=== PATIENT | male | born 1960 | race African-American/Black ===

== ENCOUNTER 2021-05-30 01:00 | Emergency (ER) | payer SELFPAY ==
[~2021-05-30] VITALS: Ht 188 cm; Wt 84.0 kg
[2021-05-30 01:21] VITALS: BP 141/96
[2021-05-30 03:01] LABS: BASOPHILS % 1.3 % (0.0-2.0); EOSINOPHILS % 2.1 % (0.0-5.0); HEMATOCRIT. 41.5 % (42.0-52.0); LYMPHOCYTES % 29.9 % (20.0-50.0); MEAN CORPUSCULAR VOLUME 106.7 fL (80.0-94.0); MEAN PLATELET VOLUME 8.4 fl (7.4-10.4); MONOCYTES % 8.8 % (2.0-8.0); NEUTROPHILS % 57.9 % (40.0-76.0); PLATELET 352 x1000/uL (130-400); RED BLOOD CELL COUNT 3.89 mill/uL (4.7-6.1); RED CELL DISTRIBUTION WIDTH 15.6 % (11.6-14.6)
[2021-05-30 03:11] LABS: CHLORIDE 107 mEq/L (98-107)
[2021-05-30 03:15] LABS: ETHANOL BLOOD 227 mg/dL
[2021-05-30] MEDS ORDERED: GABA-532 PO (04:46)
== END 2021-05-30 05:01 | disposition home or self-care (01) ==
LOC: ER 01:00
DX: R20.2 Paresthesia of skin (principal); F10.10 Alcohol abuse, uncomplicated; Y90.7 Blood alcohol level of 200-239 mg/100 ml
CPT/HCPCS: 36415; 71045; 80053; 80320; 85025; 99284; G0480

== ENCOUNTER 2023-04-27 14:37 | Inpatient (IN) | payer OTHER ==
[~2023-04-27] VITALS: Ht 188 cm; Wt 89.8 kg
[~2023-04-27 14:37] MED LIST: GABA-532 PO
[2023-04-27] MEDS: DEXTROSE 50% WATER 50ML SYRINGE IV ONE (15:00)
[2023-04-27] MEDS: SODIUM CHLORIDE 0.9% 1,000 ML IV ONE (15:41)
[2023-04-27 15:46] LABS: HEMATOCRIT. 41.2 % (42.0-52.0); HEMOGLOBIN. 14.1 g/dL (14.0-18.0); MEAN CORPUSCULAR HEMOGLOBIN 36.7 pg (28.0-32.0); MEAN CORPUSCULAR HGB CONC 34.2 g/dL (31.0-37.0); MEAN CORPUSCULAR VOLUME 107.3 fL (80.0-94.0); RED BLOOD CELL COUNT 3.85 mill/uL (4.7-6.1); WHITE BLOOD COUNT 16.5 x1000/uL (4.5-11.0)
[2023-04-27 15:47] LABS: DIFFERENTIAL COMMENT 1
[2023-04-27 15:58] LABS: INR 0.9; PARTIAL THROMBOPLASTIN TIME < 21.0 sec (23.4-31.0); PROTHROMBIN TIME 10.6 sec (9.6-11.0)
[2023-04-27 16:06] LABS: ALANINE AMINOTRANSFERASE 16 IU/L (10-49); ALBUMIN 4.2 g/dL (3.2-4.8); ASPARTATE AMINOTRANSFERASE 44 IU/L (<34); BILIRUBIN TOTAL 0.6 mg/dL (0.1-1.0); CALCIUM 9.7 mg/dL (8.7-10.4); CARBON DIOXIDE 19 mEq/L (21-32); CHLORIDE 98 mEq/L (98-107); CREATININE 0.7 mg/dL (0.6-1.3); ETHANOL BLOOD 16 mg/dL (<10); GLUCOSE 59 mg/dL (70-105); POTASSIUM 4.8 mEq/L (3.5-5.1); PROTEIN TOTAL 8.2 g/dL (6.0-8.3); SODIUM 133 mEq/L (136-145); T4 FREE 0.96 ng/dL (0.89-1.76); UREA NITROGEN BLOOD 13 mg/dL (9-23)
[2023-04-27 16:09] LABS: MEAN PLATELET VOLUME 10.1 fl (7.4-10.4); NUCLEATED RED BLOOD CELLS 3 /100 WBC; PLATELET 345 x1000/uL (130-400)
[2023-04-27 16:10] LABS: PLATELET ESTIMATE NORMAL
[2023-04-27 16:13] LABS: TROPONIN I HIGH SENSITIVITY < 4 ng/L (3.0-53)
[2023-04-27 16:32] LABS: CLARITY URINE CLEAR (CLEAR); COLOR URINE DARK YELLOW (YELLOW); GLUCOSE URINE NEGATIVE (NEGATIVE); KETONES URINE 2+ (NEGATIVE); LEUKOCYTE ESTERASE URINE TRACE (NEGATIVE); NITRITE URINE NEGATIVE (NEGATIVE); OCCULT BLOOD URINE NEGATIVE (NEGATIVE); PH URINE 5.5 (4.5-8.0); PROTEIN URINE 1+ (NEGATIVE)
[2023-04-27 16:41] LABS: RBC URINE 0-2 /hpf (0-2)
[2023-04-27 16:42] LABS: BACTERIA URINE NONE SEEN; SQUAMOUS EPITHELIAL CELL URINE 2+ /lpf (RARE/1+)
[2023-04-27 16:54] LABS: *AMPHETAMINES SCREEN URINE NEGATIVE (NEGATIVE); *BARBITURATES SCREEN URINE NEGATIVE (NEGATIVE); *BENZODIAZEPINES SCREEN URINE NEGATIVE (NEGATIVE); *COCAINE SCREEN URINE NEGATIVE (NEGATIVE); CANNABINOID URINE SCREEN NEGATIVE (NEGATIVE); ECSTASY MDMA SCREEN URINE NEGATIVE (NEGATIVE); METHADONE URINE SCREEN Neg (NEGATIVE); OPIATES URINE SCREEN NEGATIVE (NEGATIVE); PHENCYCLIDINE URINE SCREEN NEGATIVE (NEGATIVE)
[2023-04-27] MEDS ORDERED: MAGNESIUM 2 G PREMIX 50 ML IV ONE (17:15)
[2023-04-27] MEDS ORDERED: CEFTRIAXONE 2GM/50ML 50 ML IV ONE (17:30)
[2023-04-27] MEDS ORDERED: CEFTRIAXONE 1GM/50ML 50 ML IV ONE (17:30)
[2023-04-27] MEDS: MAGNESIUM 2 G PREMIX 50 ML IV NR (19:53)
[2023-04-27] MEDS: ONDANSETRON HCL 4MG/2ML INJ IV ONE (20:30)
[2023-04-27] MEDS: DIAZEPAM 5 MG/ML 2ML CPJ IV ONE (20:45)
[2023-04-27] MEDS: CEFTRIAXONE 2GM/50ML 50 ML IV NR (20:51)
[2023-04-27] MEDS: FOLIC ACID 1 MG, THIAMINE HCL 100 MG, MVI, ADULT NO.1 10 ML in DEXTROSE 5% WATER 1,000 ML IV ONE (20:51)
[2023-04-27] MEDS ORDERED: DIAZEPAM 5 MG/ML 2ML CPJ IV PRN (21:00)
[2023-04-27] MEDS ORDERED: ACETAMINOPHEN 325MG TABLET PO PRN (21:00)
[2023-04-27] MEDS: DEXT 5%/0.9% NACL 1,000 ML IV SCH (22:10)
[2023-04-28] VITALS: BP 127/78; PULSE 108; RESP 18; TEMP 97.9
[2023-04-28] MEDS: MVI, ADULT NO.1 10 ML, FOLIC ACID 1 MG, THIAMINE HCL 100 MG in SODIUM CHLORIDE 0.9% 1,0... IV SCH (02:20)
[2023-04-28] MEDS: MAGNESIUM 2 G PREMIX 50 ML IV NR ×2 (02:20→02:32)
[2023-04-28 04:32] VITALS: BP 127/78; PULSE 108; RESP 18; TEMP 97.9
[2023-04-28 06:57] LABS: BASOPHILS % 0.8 % (0.0-2.0); DIFFERENTIAL COMMENT 0; EOSINOPHILS % 1.2 % (0.0-5.0); HEMATOCRIT. 33.1 % (42.0-52.0); HEMOGLOBIN. 11.3 g/dL (14.0-18.0); LYMPHOCYTES % 28.3 % (20.0-50.0); MEAN CORPUSCULAR HEMOGLOBIN 36.3 pg (28.0-32.0); MEAN CORPUSCULAR HGB CONC 34.2 g/dL (31.0-37.0); MEAN CORPUSCULAR VOLUME 106.1 fL (80.0-94.0); MEAN PLATELET VOLUME 9.4 fl (7.4-10.4); MONOCYTES % 9.1 % (2.0-8.0); NEUTROPHILS % 60.6 % (40.0-76.0); PLATELET 320 x1000/uL (130-400); RED BLOOD CELL COUNT 3.12 mill/uL (4.7-6.1); RED CELL DISTRIBUTION WIDTH 18.3 % (11.6-14.6)
[2023-04-28 07:24] LABS: CALCIUM 8.5 mg/dL (8.7-10.4); CARBON DIOXIDE 22 mEq/L (21-32); CHLORIDE 98 mEq/L (98-107); CREATININE 0.6 mg/dL (0.6-1.3); GLUCOSE 76 mg/dL (70-105); PHOSPHORUS 2.2 mg/dL (2.5-4.9); SODIUM 132 mEq/L (136-145); UREA NITROGEN BLOOD 11 mg/dL (9-23)
[2023-04-28 08:00] VITALS: BP 118/85; PULSE 71; RESP 18; TEMP 98.2
[2023-04-28 12:00] VITALS: BP 100/70; PULSE 93; RESP 18; TEMP 98.6
[2023-04-28 16:00] VITALS: BP 106/80; PULSE 104; RESP 20; TEMP 97.7
[2023-04-28] MEDS: POTASSIUM PHOSPHATE 20 MMOL in DEXT 5% WATER 250 ML IV NR (18:50)
[2023-04-28 20:00] VITALS: BP 102/72; PULSE 105; RESP 18; TEMP 98.1
[2023-04-29 04:00] VITALS: BP 106/72; PULSE 97; RESP 18; TEMP 97.3
[2023-04-29 08:00] VITALS: BP 106/73; PULSE 98; RESP 18; TEMP 98.1
[2023-04-29 12:00] VITALS: BP 100/67; PULSE 99; RESP 18; TEMP 97.9
[2023-04-29 16:00] VITALS: BP 109/68; PULSE 111; RESP 20; TEMP 98.1
[2023-04-29 20:00] VITALS: BP 110/80; PULSE 89; RESP 18; TEMP 98.1
[2023-04-30] VITALS: BP 100/73; PULSE 93; RESP 19; TEMP 98.5
[2023-04-30 04:00] VITALS: BP 104/79; PULSE 85; RESP 19; TEMP 97.8
[2023-04-30 08:00] VITALS: BP 110/76; PULSE 89; RESP 18; TEMP 98.4
[2023-04-30 12:00] VITALS: BP_SYST 96; BP_SYST 97; BP_DIAS 70; PULSE 107; RESP 18; RESP 19; TEMP 97.8
[2023-04-30 16:00] VITALS: BP 108/76; PULSE 98; RESP 18; TEMP 98.6
[2023-04-30 20:00] VITALS: BP 117/82; PULSE 72; RESP 16; TEMP 96.9
[2023-05-01 00:30] VITALS: BP 128/84; PULSE 77; RESP 18; TEMP 97.9
[2023-05-01 04:00] VITALS: BP 116/86; PULSE 81; RESP 20; TEMP 97.9
[2023-05-01 08:00] VITALS: BP 111/83; PULSE 86; RESP 19; TEMP 97.7
[2023-05-01 12:00] VITALS: BP 103/78; PULSE 82; RESP 20; TEMP 97.9
[2023-05-01 16:00] VITALS: BP 105/76; PULSE 100; RESP 20; TEMP 97.5
[2023-05-01 20:00] VITALS: BP_SYST 108; BP_SYST 109; BP_DIAS 81; PULSE 104; RESP 18; TEMP 94.7; TEMP 97.4
[2023-05-02 04:00] VITALS: BP 113/79; PULSE 105; RESP 18; TEMP 98.1
[2023-05-02 08:00] VITALS: BP 112/79; PULSE 90; RESP 19; TEMP 98.2
[2023-05-02 10:58] LABS: BASOPHILS % 0.7 % (0.0-2.0); DIFFERENTIAL COMMENT 0; EOSINOPHILS % 2.3 % (0.0-5.0); HEMATOCRIT. 29.8 % (42.0-52.0); LYMPHOCYTES % 19.5 % (20.0-50.0); MEAN CORPUSCULAR HEMOGLOBIN 35.4 pg (28.0-32.0); MEAN CORPUSCULAR HGB CONC 33.7 g/dL (31.0-37.0); MEAN CORPUSCULAR VOLUME 105.1 fL (80.0-94.0); MEAN PLATELET VOLUME 9.1 fl (7.4-10.4); NEUTROPHILS % 65.5 % (40.0-76.0); PLATELET 304 x1000/uL (130-400); RED BLOOD CELL COUNT 2.84 mill/uL (4.7-6.1); RED CELL DISTRIBUTION WIDTH 17.8 % (11.6-14.6); WHITE BLOOD COUNT 11.1 x1000/uL (4.5-11.0)
[2023-05-02 11:39] LABS: CALCIUM 8.8 mg/dL (8.7-10.4); CARBON DIOXIDE 26 mEq/L (21-32); CHLORIDE 108 mEq/L (98-107); CREATININE 0.6 mg/dL (0.6-1.3); GLUCOSE 82 mg/dL (70-105); PHOSPHORUS 3.4 mg/dL (2.5-4.9); SODIUM 136 mEq/L (136-145); UREA NITROGEN BLOOD 10 mg/dL (9-23)
[2023-05-02 12:00] VITALS: BP 114/86; PULSE 92; RESP 20; TEMP 98.2
[2023-05-02] MEDS: ACETAMINOPHEN 325MG TABLET PO PRN (15:44)
[2023-05-02 16:07] VITALS: BP 111/77; PULSE 90; RESP 20; TEMP 98.2
[2023-05-02 20:00] VITALS: BP 99/70; PULSE 109; RESP 16; TEMP 97.6
[2023-05-02] MEDS: DIPHENHYDRAMINE 50MG/ML VIAL IV PRN (20:53)
[2023-05-02] MEDS: ONDANSETRON HCL 4MG/2ML INJ IV PRN (20:54)
[2023-05-02] MEDS: GABAPENTIN 100MG CAPSULE PO SCH (21:28)
[2023-05-03 04:00] VITALS: BP 124/68; PULSE 65; RESP 16; TEMP 97.1
[2023-05-03 08:00] VITALS: BP 97/71; PULSE 91; RESP 22; TEMP 97.1
[2023-05-03 12:00] VITALS: BP 115/83; PULSE 104; RESP 19; TEMP 97.7
[2023-05-03 16:00] VITALS: BP 120/80; PULSE 100; RESP 19; TEMP 97.5
[2023-05-03 17:19] VITALS: BP 120/80; PULSE 100; RESP 19; TEMP 97.5
[2023-05-03 20:00] VITALS: BP 100/69; PULSE 114; RESP 18; TEMP 98.1
[2023-05-03] MEDS: GABAPENTIN 100MG CAPSULE PO SCH (21:36)
[2023-05-04] VITALS: BP 102/72; PULSE 98; RESP 18; TEMP 97.7
[2023-05-04 04:00] VITALS: BP 108/78; PULSE 105; RESP 19; TEMP 99.5
[2023-05-04 08:00] VITALS: BP 120/85; PULSE 100; RESP 22; TEMP 98.2
[2023-05-04 12:00] VITALS: BP 128/72; PULSE 102; RESP 21; TEMP 98.4
[2023-05-04 16:00] VITALS: BP 127/80; PULSE 102; RESP 20; TEMP 98.4
[2023-05-04 20:00] VITALS: BP 109/78; RESP 18
[2023-05-05] VITALS: BP 113/74; PULSE 96; RESP 20; TEMP 98.7
[2023-05-05 04:00] VITALS: BP 127/88; PULSE 97; RESP 20; TEMP 98.6
[2023-05-05 08:00] VITALS: BP 113/83; PULSE 99; RESP 17; TEMP 97.9
[2023-05-05 12:00] VITALS: BP 108/77; PULSE 100; RESP 19; TEMP 97.9
[2023-05-05 16:07] VITALS: BP 122/89; PULSE 100; RESP 17; TEMP 97.7
[2023-05-05 20:00] VITALS: BP 114/86; PULSE 86; RESP 18; TEMP 96.7
[2023-05-06] VITALS: BP 112/79; PULSE 102; RESP 18; TEMP 97.7
[2023-05-06 04:00] VITALS: BP 112/86; PULSE 96; RESP 18; TEMP 97.9
[2023-05-06 08:00] VITALS: BP 129/88; PULSE 93; RESP 18; TEMP 98.2
[2023-05-06 12:00] VITALS: BP 121/89; PULSE 101; RESP 19; TEMP 97.6
[2023-05-06 16:00] VITALS: BP 109/85; PULSE 146; RESP 17; TEMP 98.4
[2023-05-06 20:00] VITALS: BP 104/79; PULSE 116; RESP 18; TEMP 98.8
[2023-05-07] VITALS: BP 118/84; PULSE 105; RESP 18; TEMP 97.7
[2023-05-07 04:00] VITALS: BP 119/70; PULSE 101; RESP 20; TEMP 97.2
[2023-05-07] MEDS: MAGNESIUM 4 G PREMIX 100 ML IV NR (04:46)
[2023-05-07 08:00] VITALS: BP 113/79; PULSE 73; RESP 19; TEMP 97.9
[2023-05-07] MEDS: METOPROLOL TARTRATE 25MG TABLET PO SCH (09:30)
[2023-05-07 12:00] VITALS: BP 101/76; PULSE 87; RESP 18; TEMP 96.4
[2023-05-07 16:00] VITALS: BP 102/68; PULSE 77; RESP 18; TEMP 97.7
[2023-05-07 20:00] VITALS: BP 114/83; PULSE 76; RESP 20; TEMP 97.1
[2023-05-07 20:45] LABS: TROPONIN I HIGH SENSITIVITY < 4 ng/L (3.0-53)
[2023-05-08 04:00] VITALS: BP 103/73; PULSE 98; RESP 16; TEMP 97.2
[2023-05-08 07:43] LABS: BASOPHILS % 0.5 % (0.0-2.0); DIFFERENTIAL COMMENT 0; EOSINOPHILS % 2.8 % (0.0-5.0); HEMOGLOBIN. 10.5 g/dL (14.0-18.0); LYMPHOCYTES % 23.5 % (20.0-50.0); MEAN CORPUSCULAR HGB CONC 34.1 g/dL (31.0-37.0); MEAN CORPUSCULAR VOLUME 105.7 fL (80.0-94.0); MEAN PLATELET VOLUME 8.7 fl (7.4-10.4); MONOCYTES % 10.6 % (2.0-8.0); NEUTROPHILS % 62.6 % (40.0-76.0); PLATELET 464 x1000/uL (130-400); RED BLOOD CELL COUNT 2.93 mill/uL (4.7-6.1); RED CELL DISTRIBUTION WIDTH 17.3 % (11.6-14.6); WHITE BLOOD COUNT 10.8 x1000/uL (4.5-11.0)
[2023-05-08 08:00] VITALS: BP 110/78; PULSE 98; RESP 18; TEMP 97.5
[2023-05-08 08:12] LABS: CALCIUM 8.8 mg/dL (8.7-10.4); CARBON DIOXIDE 22 mEq/L (21-32); CHLORIDE 110 mEq/L (98-107); CREATININE 0.7 mg/dL (0.6-1.3); GLUCOSE 79 mg/dL (70-105); POTASSIUM 4.3 mEq/L (3.5-5.1); SODIUM 139 mEq/L (136-145); TROPONIN I HIGH SENSITIVITY < 4 ng/L (3.0-53); UREA NITROGEN BLOOD 10 mg/dL (9-23)
[2023-05-08 12:00] VITALS: BP 93/61; PULSE 84; RESP 17; TEMP 97.7
[2023-05-08 16:00] VITALS: BP 114/76; PULSE 101; RESP 18; TEMP 97.5
[2023-05-08 20:00] VITALS: BP 100/72; PULSE 92; RESP 18; TEMP 97.9
[2023-05-09] VITALS: BP 118/79; PULSE 96; RESP 18; TEMP 97.5
[2023-05-09 04:00] VITALS: BP 107/80; PULSE 93; RESP 18; TEMP 97.7
[2023-05-09 08:00] VITALS: BP 120/85; PULSE 92; RESP 18; TEMP 97.6
[2023-05-09 12:00] VITALS: BP 102/66; PULSE 90; RESP 19; TEMP 97.7
[2023-05-09 16:00] VITALS: BP 112/82; PULSE 56; RESP 17; TEMP 98
[2023-05-09] MEDS ORDERED: CYANOCOBALAMIN 1000MCG/ML VIAL IM SCH (17:00)
[2023-05-09] MEDS: THIAMINE HCL 100MG TABLET PO SCH (17:17)
[2023-05-09] MEDS: FOLIC ACID 1MG TABLET PO SCH (17:17)
[2023-05-09] MEDS: CYANOCOBALAMIN 1000MCG TABLET PO SCH (17:18)
[2023-05-09] MEDS: ERGOCALCIFEROL 50000UNITS CAPSULE PO SCH (18:00)
[2023-05-09 20:00] VITALS: BP 99/75; PULSE 121; RESP 19; TEMP 98.6
[2023-05-10] VITALS: BP 122/89; PULSE 85; RESP 19; TEMP 98.4
[2023-05-10 04:00] VITALS: BP 105/76; PULSE 87; RESP 18; TEMP 97.7
[2023-05-10 08:00] VITALS: BP 119/80; PULSE 63; RESP 20; TEMP 98.2
[2023-05-10 12:00] VITALS: BP 102/67; PULSE 63; RESP 20; TEMP 97.9
[2023-05-10 12:02] VITALS: BP 102/67; PULSE 63; TEMP 97.7; O2SAT 95
== END 2023-05-10 14:26 | DRG 309 ==
LOC: ER 14:46 → 7EST 20:13 → EDBEDREQ 20:15 → EDBEDREQTM 20:15 → 6EST 04-30 23:50
PROVIDERS: ADMIT Internal Medicine; ATTEND Internal Medicine
DX: R00.0 Tachycardia, unspecified (principal); E87.29 Other acidosis; R65.10 Systemic inflammatory response syndrome (SIRS) of non-infectious origin without acute organ dysfunction; F10.231 Alcohol dependence with withdrawal delirium; Y90.0 Blood alcohol level of less than 20 mg/100 ml; E83.42 Hypomagnesemia; G62.9 Polyneuropathy, unspecified; Z87.891 Personal history of nicotine dependence; Z75.1 Person awaiting admission to adequate facility elsewhere; Z79.899 Other long term (current) drug therapy
CPT/HCPCS: 36415; 71045; 80048; 80053; 80305; 80320; 81003; 83735; 83880; 84100; 84439; 84443; 84484; 85025; 93005; 93306; 97116; 97162; 97166; 97530; 99285; J0696; J1200; J2405; J3411; J3475; J3490; J7030; J7060; J7070; G0480

== ENCOUNTER 2024-12-07 16:09 | Emergency (ER) | payer MEDICAID, OTHER ==
[~2024-12-07] VITALS: Ht 182.9 cm; Wt 70.0 kg
[~2024-12-07 16:09] MED LIST changes: +GABA-1180 PO; -GABA-532 PO
[2024-12-07 16:11] VITALS: O2SAT 97
[2024-12-07 18:18] LABS: BASOPHILS % 0.9 % (0.0-2.0); EOSINOPHILS % 0.6 % (0.0-5.0); HEMATOCRIT. 38.2 % (42.0-52.0); HEMOGLOBIN. 12.9 g/dL (14.0-18.0); LYMPHOCYTES % 15.3 % (20.0-50.0); MEAN PLATELET VOLUME 8.7 fl (7.4-10.4); MONOCYTES % 11.9 % (2.0-8.0); NEUTROPHILS % 71.3 % (40.0-76.0); PLATELET 393 x1000/uL (130-400); RED BLOOD CELL COUNT 3.54 mill/uL (4.7-6.1); RED CELL DISTRIBUTION WIDTH 22.1 % (11.6-14.6)
[2024-12-07] MEDS: SODIUM CHLORIDE 0.9% 1,000 ML IV ONE (18:18)
[2024-12-07 18:31] LABS: ADD RBC MORPHOLOGY YES
[2024-12-07 18:37] LABS: CREATININE 1.0 mg/dL (0.6-1.3)
[2024-12-07 18:38] LABS: TROPONIN I HIGH SENSITIVITY < 4 ng/L (3.0-53); UREA NITROGEN BLOOD 16 mg/dL (9-23)
[2024-12-07 18:39] LABS: ASPARTATE AMINOTRANSFERASE 16 IU/L (<34); BILIRUBIN DIRECT 0.2 mg/dL (<=3.0)
[2024-12-07 18:40] LABS: BILIRUBIN TOTAL 0.4 mg/dL (0.1-1.0); PROTEIN TOTAL 6.9 g/dL (6.0-8.3)
[2024-12-07] MEDS: CEFTRIAXONE 1GM/50ML 50 ML IV SCH (19:41)
[2024-12-07] MEDS: SODIUM CHLORIDE 0.9% (SEPSIS BOLUS) IV ONE (19:42)
[2024-12-07 20:55] LABS: PLATELET ESTIMATE NORMAL
[2024-12-08 00:22] VITALS: BP 130/91; PULSE 105; RESP 18; TEMP 36.7; O2SAT 97
== END 2024-12-08 01:00 | disposition short-term general hospital (02) ==
LOC: ER 16:09 → CMPBEDREQ 12-08 07:25
DX: A41.9 Sepsis, unspecified organism (principal); R65.21 Severe sepsis with septic shock; R62.7 Adult failure to thrive; I10 Essential (primary) hypertension; Z68.30 Body mass index [BMI] 30.0-30.9, adult; Z79.899 Other long term (current) drug therapy
CPT/HCPCS: 80076; 80048; 80320; 83605; 85025; 87040; 84484; 36415; 71045; 93005; 96361; 96365; 96366; 99291; J0696; J7030; G0480